=== PATIENT | male | born 1950 | race Caucasian/White ===

== ENCOUNTER 2017-05-04 20:59 | Observation (INO) | payer OTHER ==
[~2017-05-04] VITALS: Ht 180.3 cm; Wt 127.5 kg
[~2017-05-04 20:59] MED LIST: AMOX TR-K CLV1 EAC4 PO; ASPIR 8181 M1 PO; BABY ASPIRIN81 M1 PO; CORDARONE200 MG PO; COUMADIN3 M1 PO; COUMADIN3 MG PO; COUMADIN4 MG PO; COUMADIN5 MG PO; CRESTOR10 MG PO; Cipro PO; Coumadin,Jantoven PO; FENOFIBRATE145 M1 PO; Flagyl PO; HYDROCHLOROTHIA25 MG PO; HYDRODIURIL,ORE25 MG PO; Hydrodiuril,Oretic,E PO; INVANZ1 GM IM; L-LYSINE500 M2 PO; LOSARTAN POTAS100 MG PO; LYSINE PO; LYSINE,L-LYSIN500 MG PO; LYSINE500 MG; METFORMIN HCL500 MG PO; METOPROLOL SUC100 MG PO; Neutra-Phos,Phos-Nak PO; SIMVASTATIN10 M1 PO; SIMVASTATIN40 MG PO; TOPROL XL100 MG PO; TOPROL XL200 MG PO; TRICOR145 MG PO; Toprol XL PO; Tricor PO; VERAPAMIL ER240 MG PO; ZETIA10 MG PO
[2017-05-04 21:31] LABS: HEMATOCRIT 47.9 % (38.0-50.0); MCH 31.1 PG (29.0-34.0); MCHC 34.7 G/DL (30.0-36.0); MCV 89.7 FL (86-99); MEAN PLAT.VOLUME 9.7 uM^3 (9.0-12.4); PLATELET COUNT 311 K/uL (156-360); RBC DIS.WIDTH-CV 13.2 % (11.8-14.6); RBC DIS.WIDTH-SD 43.4 % (39-53); RED BLOOD COUNT 5.34 M/uL (4.00-5.50); WHITE BLOOD COUNT 12.1 K/uL (4.1-10.2)
[2017-05-04 21:42] LABS: CHLORIDE 102 mEq/L (99-109); POTASSIUM 4.3 mEq/L (3.7-5.4); SODIUM 136 mEq/L (136-147)
[2017-05-04 21:44] LABS: GLUCOSE 153 mg/dL (70-99)
[2017-05-04 21:45] LABS: ANION GAP 8 MEQ/L (2-14)
[2017-05-04 21:46] LABS: TOTAL BILIRUBIN 0.6 mg/dL (0.0-1.0)
[2017-05-04 21:47] LABS: ALKALINE PHOSPHATASE 80 IU/L (3-129)
[2017-05-04 21:48] LABS: GFR ESTIMATE (CALCULATED) > 59 mL/min/ (58.99-99999)
[2017-05-04 21:49] LABS: UREA NITROGEN (BUN) 21 mg/dL (9-23)
[2017-05-04 22:03] LABS: LIPASE 38 U/L (1.0-51.0)
[2017-05-05 00:19] LABS: INTER. NORMALIZED RATIO 2.1; PROTHROMBIN TIME 23.4 SEC (10.2-12.9)
[2017-05-05 00:36] LABS: ADD MIUA? NO; BILIRUBIN NEGATIVE; BLOOD NEGATIVE; COLOR YELLOW ((YELLOW)); GLUCOSE (STRIP) NEGATIVE; KETONES NEGATIVE; LEUKOCYTES NEGATIVE; NITRITE NEGATIVE; PROTEIN (STRIP) 30; UCUL ADDED? NO; UROBILINOGEN 0.2 MG/DL (0.2-1.0)
[2017-05-05 00:45] LABS: SPECIFIC GRAVITY 1.061 (1.000-1.030)
[2017-05-05 01:15] LABS: TROP-I INTERPRETATION NEGATIVE; TROPONIN-I < 0.01 ng/mL (0.0-0.30)
[2017-05-05 06:27] VITALS: BP 163/74
[2017-05-05 06:29] LABS: INTER. NORMALIZED RATIO 2.2; PROTHROMBIN TIME 25.4 SEC (10.2-12.9)
[2017-05-05 06:44] VITALS: BP 175/71
[2017-05-05 07:53] LABS: POINT-OF-CARE METER ID UU13113774
[2017-05-05 10:57] VITALS: BP 162/69
[2017-05-05 11:35] LABS: POINT-OF-CARE METER ID UU13113774
[2017-05-05] MEDS ORDERED: AUGMENTIN875 MG PO (15:19)
[2017-05-05 15:27] LABS: POINT-OF-CARE METER ID UU13113725
[2017-05-05 16:05] LABS: ANION GAP 6 MEQ/L (2-14); CHLORIDE 104 MEQ/L (99-109); GFR ESTIMATE (CALCULATED) > 59 mL/min/ (58.99-99999); GLUCOSE 160 mg/dL (70-99); POTASSIUM 4.3 MEQ/L (3.7-5.4); SAMPLE HEMOLYSIS CHECK 0; SAMPLE ICTERIC CHECK 0; SAMPLE LIPEMIA CHECK 0; SODIUM 135 MEQ/L (136-147); UREA NITROGEN (BUN) 16 mg/dL (9-23)
[2017-05-05 17:27] VITALS: BP 191/83
[2017-05-05 18:00] VITALS: BP 168/72
== END 2017-05-05 18:41 | disposition home or self-care (01) ==
LOC: EME 20:59 → 5EAST 05-05 02:41 → EDOF 05-05 02:41 → ENRESERV 05-05 02:43 → CANRESERV 05-05 02:43 → ENRESERV 05-05 03:38 → 5EAST 05-05 05:52
PROVIDERS: Emergency Medicine; Hospitalist
DX: N28.0 Ischemia and infarction of kidney (principal); R10.31 Right lower quadrant pain; R10.11 Right upper quadrant pain; I10 Essential (primary) hypertension; E78.5 Hyperlipidemia, unspecified; Z95.2 Presence of prosthetic heart valve; Z79.01 Long term (current) use of anticoagulants; Z90.49 Acquired absence of other specified parts of digestive tract; Z86.73 Personal history of transient ischemic attack (TIA), and cerebral infarction without residual deficits; Z87.19 Personal history of other diseases of the digestive system; D72.829 Elevated white blood cell count, unspecified; Z79.82 Long term (current) use of aspirin; Z79.84 Long term (current) use of oral hypoglycemic drugs; Z91.09 Other allergy status, other than to drugs and biological substances
CPT/HCPCS: 74177; 80048; 80053; 81003; 82948; 83690; 84484; 85027; 85610; 93005; G0378; J1815; J1956; J7030

== ENCOUNTER 2017-06-24 23:08 | Inpatient (IN) | payer OTHER ==
[~2017-06-24] VITALS: Ht 180.3 cm; Wt 128.2 kg
[~2017-06-24 23:08] MED LIST changes: +AUGMENTIN875 MG PO
[2017-06-25 00:12] LABS: HEMATOCRIT 40.4 % (38.0-50.0); HEMOGLOBIN 14.2 G/DL (12.5-16.6); MCH 31.2 PG (29.0-34.0); MCHC 35.1 G/DL (30.0-36.0); MCV 88.8 FL (86-99); PLATELET COUNT 284 K/uL (156-360); RBC DIS.WIDTH-CV 13.2 % (11.8-14.6); RBC DIS.WIDTH-SD 43.2 % (39-53); RED BLOOD COUNT 4.55 M/uL (4.00-5.50); WHITE BLOOD COUNT 10.2 K/uL (4.1-10.2)
[2017-06-25 00:22] LABS: ALBUMIN 3.8 g/dL (3.2-4.8); CHLORIDE 106 mEq/L (99-109); INTER. NORMALIZED RATIO 6.8
[2017-06-25 00:23] LABS: POTASSIUM 4.2 mEq/L (3.7-5.4); SODIUM 139 mEq/L (136-147)
[2017-06-25 00:25] LABS: GLUCOSE 179 mg/dL (70-99); TOTAL PROTEIN 6.7 g/dL (6.4-8.3)
[2017-06-25 00:27] LABS: TOTAL BILIRUBIN 0.4 mg/dL (0.0-1.0)
[2017-06-25 00:28] LABS: ALKALINE PHOSPHATASE 88 IU/L (3-129)
[2017-06-25 00:29] LABS: CREATININE 1.1 mg/dL (0.6-1.3); GFR ESTIMATE (CALCULATED) > 59 mL/min/ (58.99-99999)
[2017-06-25 00:30] LABS: AST (GOT) 16 IU/L (2-34); UREA NITROGEN (BUN) 14 mg/dL (9-23)
[2017-06-25 00:31] LABS: ALT (GPT) 20 IU/L (3-49)
[2017-06-25 00:32] LABS: LIPASE 398 U/L (1.0-51.0)
[2017-06-25 00:47] LABS: APPEARANCE CLOUDY ((CLEAR)); BILIRUBIN NEGATIVE; BLOOD LARGE; COLOR YELLOW ((YELLOW)); GLUCOSE (STRIP) NEGATIVE; KETONES NEGATIVE; LEUKOCYTES NEGATIVE; NITRITE NEGATIVE; PROTEIN (STRIP) 100; SPECIFIC GRAVITY 1.019 (1.000-1.030); UROBILINOGEN 0.2 MG/DL (0.2-1.0)
[2017-06-25 01:04] LABS: BACTERIA 3+ /HPF; EPITHELIAL CELLS 4+ /HPF; MUCUS 3+ /LPF; UCUL ADDED? YES
[2017-06-25 03:33] VITALS: BP 200/87
[2017-06-25 07:26] VITALS: BP 164/82
[2017-06-25 08:53] LABS: FASTING STATUS NONFASTING
[2017-06-25 08:56] LABS: BASOPHIL (%) 0.5 % (0-1); EOSINOPHIL (%) 1.7 % (0-5); EOSINOPHIL COUNT 0.1 K/uL (0-0.3); HEMATOCRIT 40.4 % (38.0-50.0); HEMOGLOBIN 13.6 G/DL (12.5-16.6); IMMATURE GRANULOCYTE (%) 0.4 % (0.0-0.7); LYMPHOCYTE (%) 25.2 % (15-42); LYMPHOCYTE COUNT 1.9 K/uL (1.0-2.8); MCHC 33.7 G/DL (30.0-36.0); MONOCYTE COUNT 1.1 K/uL (0-0.8); NEUTROPHIL (%) 58.2 % (45-76); NEUTROPHIL COUNT 4.5 K/uL (1.8-6.4); PLATELET COUNT 261 K/uL (156-360); RBC DIS.WIDTH-CV 13.3 % (11.8-14.6); RBC DIS.WIDTH-SD 43.5 % (39-53); RED BLOOD COUNT 4.54 M/uL (4.00-5.50); WHITE BLOOD COUNT 7.7 K/uL (4.1-10.2)
[2017-06-25 09:19] LABS: HDL CHOLESTEROL 29 MG/DL (Desirable>=40); LDL CHOLESTEROL 186 mg/dL (Desirable<100); LIPASE 38 U/L (1.0-51.0); NON-HDL CHOLESTEROL 203 mg/dL (Desirable<160); TOTAL CHOLESTEROL 232 mg/dL (Desirable<200); TRIGLYCERIDES 84 MG/DL (Normal: <150)
[2017-06-25 11:40] VITALS: BP 191/81
[2017-06-25 15:05] VITALS: BP 168/76
[2017-06-25 19:43] VITALS: BP 198/81
[2017-06-26 00:02] VITALS: BP 148/67
[2017-06-26 04:31] VITALS: BP 173/72
[2017-06-26 05:56] LABS: BASOPHIL (%) 0.7 % (0-1); BASOPHIL COUNT 0.1 K/uL (0-0.1); EOSINOPHIL (%) 2.2 % (0-5); EOSINOPHIL COUNT 0.2 K/uL (0-0.3); HEMATOCRIT 39.5 % (38.0-50.0); HEMOGLOBIN 13.5 G/DL (12.5-16.6); IMMATURE GRANULOCYTE (%) 0.3 % (0.0-0.7); LYMPHOCYTE (%) 24.1 % (15-42); LYMPHOCYTE COUNT 1.7 K/uL (1.0-2.8); MCH 30.4 PG (29.0-34.0); MCHC 34.2 G/DL (30.0-36.0); MONOCYTE (%) 14.3 % (3-12); NEUTROPHIL (%) 58.4 % (45-76); NEUTROPHIL COUNT 4.1 K/uL (1.8-6.4); PLATELET COUNT 265 K/uL (156-360); RBC DIS.WIDTH-CV 13.2 % (11.8-14.6); RBC DIS.WIDTH-SD 43.3 % (39-53); RED BLOOD COUNT 4.44 M/uL (4.00-5.50)
[2017-06-26 06:21] LABS: ALBUMIN 3.5 G/DL (3.2-4.8); ALKALINE PHOSPHATASE 55 IU/L (3-129); ALT (GPT) 13 IU/L (3-49); AMYLASE 26 IU/L (1-118); AST (GOT) 11 IU/L (2-34); CHLORIDE 105 MEQ/L (99-109); GFR ESTIMATE (CALCULATED) > 59 mL/min/ (58.99-99999); GLUCOSE 132 mg/dL (70-99); LIPASE 28 U/L (1.0-51.0); POTASSIUM 3.9 MEQ/L (3.7-5.4); SODIUM 137 MEQ/L (136-147); TOTAL BILIRUBIN 0.7 MG/DL (0.0-1.0); TOTAL PROTEIN 5.6 G/DL (6.4-8.3); UREA NITROGEN (BUN) 10 mg/dL (9-23)
[2017-06-26 06:45] LABS: INTER. NORMALIZED RATIO 4.4
[2017-06-26 07:20] VITALS: BP 183/79
[2017-06-26 11:30] VITALS: BP 199/80
[2017-06-26 12:51] VITALS: BP 140/64
[2017-06-26] MEDS ORDERED: NORVASC10 MG PO (13:30)
== END 2017-06-26 15:18 | disposition home or self-care (01) | DRG 392 ==
LOC: EME 23:08 → EDOF 06-25 02:30 → 3EAST 06-25 02:30 → ENRESERV 06-25 02:37 → 3EAST 06-25 03:29
PROVIDERS: Internal Medicine; Internal Medicine Gastroenterology; Physician Assistant; Physician Assistant Medical
DX: R10.32 Left lower quadrant pain (principal); R31.29 Other microscopic hematuria; K76.0 Fatty (change of) liver, not elsewhere classified; E66.9 Obesity, unspecified; E11.9 Type 2 diabetes mellitus without complications; I16.0 Hypertensive urgency; I10 Essential (primary) hypertension; E78.5 Hyperlipidemia, unspecified; E78.00 Pure hypercholesterolemia, unspecified; Z96.653 Presence of artificial knee joint, bilateral; D73.89 Other diseases of spleen; R79.1 Abnormal coagulation profile; T45.515A Adverse effect of anticoagulants, initial encounter; K57.30 Diverticulosis of large intestine without perforation or abscess without bleeding; R74.0 Nonspecific elevation of levels of transaminase and lactic acid dehydrogenase [LDH]; Z68.39 Body mass index [BMI] 39.0-39.9, adult; Z95.2 Presence of prosthetic heart valve; Z79.84 Long term (current) use of oral hypoglycemic drugs; Z79.01 Long term (current) use of anticoagulants; Z86.73 Personal history of transient ischemic attack (TIA), and cerebral infarction without residual deficits; Z90.49 Acquired absence of other specified parts of digestive tract; Z80.1 Family history of malignant neoplasm of trachea, bronchus and lung
CPT/HCPCS: 74176; 76705; 80053; 80061; 81003; 82150; 82948; 83690; 85025; 85027; 85610; 85730; 87086; 99281; 99285; C9113; J0360; J1170; J7030; J7120